=== PATIENT | male | born 1995 | race Caucasian/White ===

== ENCOUNTER 2024-09-06 01:32 | Emergency (ER) | payer SELFPAY ==
[~2024-09-06] VITALS: Ht 185.4 cm; Wt 83.0 kg
[2024-09-06 02:06] VITALS: BP 102/64; PULSE 75; RESP 16; TEMP 97.8; O2SAT 99
[2024-09-06] MEDS ORDERED: DEXAMETHASONE 10 MG/ML VIAL PO ONE (02:15)
[2024-09-06] MEDS ORDERED: HYDR28GE5 TP (02:20)
[2024-09-06] MEDS ORDERED: PRED5TAB48 MT (02:20)
== END 2024-09-06 03:33 | disposition left against medical advice (07) ==
LOC: ER 01:32
DX: L50.9 Urticaria, unspecified (principal); T49.95XA Adverse effect of unspecified topical agent, initial encounter; J45.909 Unspecified asthma, uncomplicated; Z79.52 Long term (current) use of systemic steroids; Y92.89 Other specified places as the place of occurrence of the external cause
CPT/HCPCS: 99283; J1100